=== PATIENT | male | born 1945 | race Caucasian/White ===

== ENCOUNTER 2019-01-01 13:38 | Emergency (ER) | payer MEDICARE, OTHER ==
--- NOTE | 2019-01-01 14:19 | ED.PDOC ---
History of Present Illness - General Chief Complaint: Blood Pressure Problem Stated Complaint: BP fluctuating,irregular heart rate at times Time Seen by Provider: 01/01/19 13:44 Source: patient Exam Limitations: no limitations - History of Present Illness Initial Comments: Ruddy Evans 72 y/o male started that for the last one week noted that his blood pressure had been fluctuating systic 130 and 90 also felt heart having extra beats.Denies chest pains or dizziness,headache,blurry vision but last week felt that like passing out after he stood up quickly.Has history of dm2 ,cardiac stent x -2011,HTN.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 Timing/Duration: 1 week, intermittent Severity: moderate Location: other - no chest pains Activities at Onset: none Prior Chest Pain/Cardiac Workup: cardiac cath, stress test Improving Factors: rest Worsening Factors: rest Associated Symptoms: other - see hpi Allergies/Adverse Reactions: Allergies NO KNOWN ALLERGY Allergy (Verified 01/01/19 13:55) Home Medications: Ambulatory Orders Alpha-Lipoic Acid (Thioctic AC [Alpha Lipoic Acid] 600 mg PO DAILY 01/01/19 Amlodipine Besylate 5 mg PO DAILY 01/01/19 Ascorbic Acid [Vitamin C] 1,000 mg PO DAILY 01/01/19 Aspirin [Aspirin EC Low Dose] 81 mg PO BID 01/01/19 Biotin [Biotin Maximum Strength] 10,000 mcg PO DAILY 01/01/19 Cholecalciferol [Vitamin D3] 2,000 unit PO DAILY 01/01/19 Cinnamon 500 mg PO BID 01/01/19 Coenzyme Q10 (Ubidecarenone) [Coq-10] 200 mg PO DAILY 01/01/19 Esomeprazole Strontium 49.3 mg PO DAILY 01/01/19 Garlic 1,000 mg PO DAILY 01/01/19 Glipizide [Glipizide ER] 10 mg PO DAILY 01/01/19 Lipoflavonoid 2 capsule PO TID 01/01/19 Losartan Potassium 100 mg PO DAILY 01/01/19 Magnesium 500 mg PO DAILY 01/01/19 Meloxicam 7.5 mg PO DAILY 01/01/19 Metformin HCl [Glucophage] 1,000 mg PO BID 01/01/19 Misc Natural Products [Cosamin Kimberly For Joint H] 1 tab PO BID 01/01/19 Misc Natural Products [Osteo Bi-Flex Joint Shiel] 1 tab PO DAILY 01/01/19 Multiple Vitamins W/ Minerals [Centrum Silver] 1 tab PO DAILY 01/01/19 Nortriptyline HCl [Pamelor] 10 mg PO DAILY 01/01/19 Zalhu-4-Gcjz Ethyl Esters [Fhuko-3-Tkrk Ethyl Esters 1 gm] 2 cap PO BID 01/01/19 Pravastatin Sodium 80 mg PO DAILY 01/01/19 Probiotic Product [Probiotic] 1 tab PO DAILY 01/01/19 Red Yeast Rice Extract [Red Yeast Rice] 600 mg PO DAILY 01/01/19 Sitagliptin Phosphate [Januvia] 100 mg PO DAILY 01/01/19 Tadalafil [Cialis] 5 mg PO DAILY 01/01/19 Testosterone Cypionate 0.5 ml IJ .[id number] 01/01/19 Turmeric (Curcuma Longa) [Turmeric] 1,000 mg PO BID 01/01/19 Valacyclovir HCl 500 mg PO BID 01/01/19 Zolpidem Tartrate 10 mg PO BEDTIME 01/01/19 l-Methylfolate W/ Algae-Vitami [Metanx 3-90.314-2-35 mg] 2 cap PO BID 01/01/19 Review of Systems - Review of Systems Constitutional: States: no symptoms reported EENTM: States: no symptoms reported Respiratory: States: no symptoms reported Cardiology: States: see HPI Gastrointestinal/Abdominal: States: no symptoms reported Genitourinary: States: no symptoms reported Musculoskeletal: States: no symptoms reported Skin: States: no symptoms reported Neurological: States: no symptoms reported All other Systems: Reviewed and Negative, No Change from Baseline Past Medical History (General) - Patient Medical History Hx Stroke: No Hx Cardiac Disorders: Yes - Stents x3 Hx Congestive Heart Failure: No Hx Hypertension: Yes Hx Diabetes: Yes Surgical History: other - low back surgery - Vaccination History Hx Influenza Vaccination: Yes Hx Pneumococcal Vaccination: Yes - Social History Hx Tobacco Use: Yes Hx Alcohol Use: No Hx Substance Use: No Hx Physical Abuse: No Hx Emotional Abuse: No Family Medical History - Family History Father Family History: Unknown Living Status: Unknown Hx Cardiac Disease: Yes - dad-[place] Hx Family Cancer: Yes - lungs-mom Physical Exam - Physical Exam General Appearance: Alert, Comfortable, No apparent distress Eyes, Ears, Nose, Throat Exam: PERRL/EOMI, normal ENT inspection Neck: non-tender, full range of motion, supple, normal inspection Respiratory: chest non-tender, lungs clear, normal breath sounds, no respiratory distress Cardiovascular/Chest: normal peripheral pulses, regular rate, rhythm, no murmur Peripheral Pulses: radial,right: 2+, radial,left: 2+ Gastrointestinal/Abdominal: non tender, soft Extremity: no pedal edema, no calf tenderness Neurologic: alert, oriented x 3 Skin Exam: normal color, warm/dry Progress - Progress Progress: 01/01/19 14:22 Vital Signs - 8 hr 01/01/19 01/01/19 13:51 13:58 Temperature 97.4 F L Pulse Rate 80 Pulse Rate [ 80 83 Left Brachial] Respiratory 16 Rate Blood Pressure 131/66 [Left Arm] O2 Sat by Pulse 96 Oximetry 01/01/19 15:40 Precautioned on all his over the counter medication that can interact with his prescription medications.Discuss all test results with patient - Results/Orders Results/Orders: Vital Signs - 8 hr 01/01/19 01/01/19 01/01/19 13:51 13:58 14:39 Temperature 97.4 F L Pulse Rate 80 Pulse Rate [ 80 83 77 Left Brachial] Respiratory 16 16 Rate Blood Pressure 131/66 130/65 [Left Arm] O2 Sat by Pulse 96 98 Oximetry Laboratory Tests 01/01/19 01/01/19 14:37 14:44 WBC 4.0 L RBC 4.01 L Hgb 13.2 L Hct 38.8 L MCV 96.7 H MCH 32.8 H MCHC 33.9 RDW 12.9 Plt Count 206 MPV 8.5 Absolute Neuts (auto) 2.70 Absolute Lymphs (auto) 0.80 L Absolute Monos (auto) 0.40 Absolute Eos (auto) 0.20 Absolute Basos (auto) 0.00 Neutrophils % 66.0 Lymphocytes % 20.3 Monocytes % 9.0 Eosinophils % 4.0 Basophils % 0.7 PT 9.7 INR 0.97 PTT (SP) 24.7 Sodium 140 Potassium 3.9 Chloride 107 Carbon Dioxide 23 Anion Gap 13.9 BUN 15 Creatinine 0.86 BUN/Creatinine Ratio 17.4 Random Glucose 206 H Serum Osmolality 286.2 Calcium 8.6 Magnesium 2.0 Total Bilirubin 0.4 Direct Bilirubin < 0.1 Indirect Bilirubin 0.3 AST 27 ALT 20 Alkaline Phosphatase 63 Creatine Kinase 85 CK-MB (CK-2) 2.9 CK-MB (CK-2) % Not Reportable Troponin I < 0.02 Serum Total Protein 6.4 Albumin 3.9 TSH 1.95 Urine Color Yellow Urine Appearance Clear Urine pH 5.5 Ur Specific [place] 1.020 Urine Protein Negative Urine Glucose (UA) 500 H Urine Ketones Negative Urine Blood Negative Urine Nitrite Negative Urine Bilirubin Negative Urine Urobilinogen 0.2 Ur Leukocyte Esterase Negative Urine RBC 0 Urine WBC 0 Ur Epithelial Cells 0 Urine Bacteria 0 - EKG/XRAY/CT EKG: Sinus, no ST T wave changes Comments: HR-78;unifocal pvc Departure - Departure Clinical Impression: Heart palpitations, Fluctuating blood pressure Time of Disposition: 15:42 Disposition: Discharge to Home or Self Care Condition: Fair Departure Forms: ED Discharge - Pt. Copy, Patient Portal Self Enrollment Instructions: Palpitations (DC), Palpitations Home Medications: Ambulatory Orders Alpha-Lipoic Acid (Thioctic AC [Alpha Lipoic Acid] 600 mg PO DAILY 01/01/19 Amlodipine Besylate 5 mg PO DAILY 01/01/19 Ascorbic Acid [Vitamin C] 1,000 mg PO DAILY 01/01/19 Aspirin [Aspirin EC Low Dose] 81 mg PO BID 01/01/19 Biotin [Biotin Maximum Strength] 10,000 mcg PO DAILY 01/01/19 Cholecalciferol [Vitamin D3] 2,000 unit PO DAILY 01/01/19 Cinnamon 500 mg PO BID 01/01/19 Coenzyme Q10 (Ubidecarenone) [Coq-10] 200 mg PO DAILY 01/01/19 Esomeprazole Strontium 49.3 mg PO DAILY 01/01/19 Garlic 1,000 mg PO DAILY 01/01/19 Glipizide [Glipizide ER] 10 mg PO DAILY 01/01/19 Lipoflavonoid 2 capsule PO TID 01/01/19 Losartan Potassium 100 mg PO DAILY 01/01/19 Magnesium 500 mg PO DAILY 01/01/19 Meloxicam 7.5 mg PO DAILY 01/01/19 Metformin HCl [Glucophage] 1,000 mg PO BID 01/01/19 Misc Natural Products [Cosamin Kimberly For Joint H] 1 tab PO BID 01/01/19 Misc Natural Products [Osteo Bi-Flex Joint Shiel] 1 tab PO DAILY 01/01/19 Multiple Vitamins W/ Minerals [Centrum Silver] 1 tab PO DAILY 01/01/19 Nortriptyline HCl [Pamelor] 10 mg PO DAILY 01/01/19 Urbbw-4-Puwl Ethyl Esters [Exukk-1-Ytwk Ethyl Esters 1 gm] 2 cap PO BID 01/01/19 Pravastatin Sodium 80 mg PO DAILY 01/01/19 Probiotic Product [Probiotic] 1 tab PO DAILY 01/01/19 Red Yeast Rice Extract [Red Yeast Rice] 600 mg PO DAILY 01/01/19 Sitagliptin Phosphate [Januvia] 100 mg PO DAILY 01/01/19 Tadalafil [Cialis] 5 mg PO DAILY 01/01/19 Testosterone Cypionate 0.5 ml IJ .[id number] 01/01/19 Turmeric (Curcuma Longa) [Turmeric] 1,000 mg PO BID 01/01/19 Valacyclovir HCl 500 mg PO BID 01/01/19 Zolpidem Tartrate 10 mg PO BEDTIME 01/01/19 l-Methylfolate W/ Algae-Vitami [Metanx 3-90.314-2-35 mg] 2 cap PO BID 01/01/19 Additional Instructions: Follow up with your [employer] 03 January 2019 for recheck call for appointment,NEED TO DISCONTINUE TURMERIC AND RED YEAST CAPSULE continue with rest of medications;return to Emergency Room as needed
[2019-01-01 15:55] VITALS: TEMP 98
[2019-01-01 15:56] VITALS: BP 114/72; O2SAT 95
== END 2019-01-01 15:57 | disposition home or self-care (01) ==
LOC: ER 13:38
DX: R00.2 Palpitations (principal); I10 Essential (primary) hypertension; I51.9 Heart disease, unspecified; E11.9 Type 2 diabetes mellitus without complications; Z95.5 Presence of coronary angioplasty implant and graft; Z87.891 Personal history of nicotine dependence; Z79.899 Other long term (current) drug therapy; Z79.84 Long term (current) use of oral hypoglycemic drugs; Z79.82 Long term (current) use of aspirin

== ENCOUNTER 2019-01-15 14:13 | Emergency (ER) | payer MEDICARE, OTHER ==
[2019-01-15] MEDS ORDERED: TETRACAINE HCL 0.5% OPHTH SOL 1 DROP ONE (14:40)
--- NOTE | 2019-01-15 14:43 | ED.PDOC ---
History of Present Illness - General Chief Complaint: Eye Problems Stated Complaint: Fuel in eyes Time Seen by Provider: 01/15/19 14:37 Source: patient Exam Limitations: no limitations - History of Present Illness Initial Comments: WAS USING COMPRESSED AIR ON [employer] WHEN HE ACCIDENTALLY BLEW SOME GAS INTO HIS EYES. FLUSHED THEM WITH WATER BUT STILL C/O QUEENIE IRRITATION. Timing/Duration: other - 45 MIN [employer] Severity: mild EENT Location: eye (R), eye (L) Prearrival Treatment: flushing eyes Allergies/Adverse Reactions: Allergies NO KNOWN ALLERGY Allergy (Verified 01/15/19 14:33) Home Medications: Ambulatory Orders Alpha-Lipoic Acid (Thioctic AC [Alpha Lipoic Acid] 600 mg PO DAILY 01/01/19 Amlodipine Besylate 5 mg PO DAILY 01/01/19 Ascorbic Acid [Vitamin C] 1,000 mg PO DAILY 01/01/19 Aspirin [Aspirin EC Low Dose] 81 mg PO BID 01/01/19 Biotin [Biotin Maximum Strength] 10,000 mcg PO DAILY 01/01/19 Cholecalciferol [Vitamin D3] 2,000 unit PO DAILY 01/01/19 Cinnamon 500 mg PO BID 01/01/19 Coenzyme Q10 (Ubidecarenone) [Coq-10] 200 mg PO DAILY 01/01/19 Esomeprazole Strontium 49.3 mg PO DAILY 01/01/19 Garlic 1,000 mg PO DAILY 01/01/19 Glipizide [Glipizide ER] 10 mg PO DAILY 01/01/19 Lipoflavonoid 2 capsule PO TID 01/01/19 Losartan Potassium 100 mg PO DAILY 01/01/19 Magnesium 500 mg PO DAILY 01/01/19 Meloxicam 7.5 mg PO DAILY 01/01/19 Metformin HCl [Glucophage] 1,000 mg PO BID 01/01/19 Misc Natural Products [Cosamin Kimberly For Joint H] 1 tab PO BID 01/01/19 Misc Natural Products [Osteo Bi-Flex Joint Shiel] 1 tab PO DAILY 01/01/19 Multiple Vitamins W/ Minerals [Centrum Silver] 1 tab PO DAILY 01/01/19 Nortriptyline HCl [Pamelor] 10 mg PO DAILY 01/01/19 Bfouq-8-Cyuw Ethyl Esters [Lhlfp-3-Obwf Ethyl Esters 1 gm] 2 cap PO BID 01/01/19 Pravastatin Sodium 80 mg PO DAILY 01/01/19 Probiotic Product [Probiotic] 1 tab PO DAILY 01/01/19 Red Yeast Rice Extract [Red Yeast Rice] 600 mg PO DAILY 01/01/19 Sitagliptin Phosphate [Januvia] 100 mg PO DAILY 01/01/19 Tadalafil [Cialis] 5 mg PO DAILY 01/01/19 Testosterone Cypionate 0.5 ml IJ .[id number] 01/01/19 Turmeric (Curcuma Longa) [Turmeric] 1,000 mg PO BID 01/01/19 Valacyclovir HCl 500 mg PO BID 01/01/19 Zolpidem Tartrate 10 mg PO BEDTIME 01/01/19 l-Methylfolate W/ Algae-Vitami [Metanx 3-90.314-2-35 mg] 2 cap PO BID 01/01/19 Past Medical History (General) - Patient Medical History Hx Stroke: No Hx of COPD: No Hx Cardiac Disorders: Yes - stents and palpitations Hx Congestive Heart Failure: No Hx Hypertension: Yes Hx Diabetes: Yes Hx Cancer: No Surgical History: tonsillectomy - Vaccination History Hx Tetanus, Diphtheria Vaccination: No Hx Influenza Vaccination: Yes Hx Pneumococcal Vaccination: Yes - Social History Hx Tobacco Use: Yes Hx Alcohol Use: No Hx Substance Use: No Hx Substance Use Treatment: No Hx Depression: No Hx Physical Abuse: No Hx Emotional Abuse: No - Female History Patient is a Female of Child Bearing Age (10 -59 yrs old): No Patient : No Family Medical History - Family History Father Family History: Unknown Living Status: Unknown Hx Cardiac Disease: Yes - dad-[place] Hx Family Cancer: Yes - lungs-mom Physical Exam - Physical Exam General Appearance: Alert, No apparent distress Eye Exam: bilateral other - CONJUNCTAL AND SCLERAL IRRIATION. CORNEAS CLEAR, PUPILS REACTIVE. EOMI. Ear Exam: bilateral ear: auricle normal Nasal Exam: normal inspection Throat Exam: normal mouth inspection, pharynx normal Neck: full range of motion, supple, normal inspection Cardiovascular/Respiratory: regular rate, rhythm, no M/R/G, normal breath sounds Neurologic: alert, oriented x 3 Skin Exam: normal color, other - NO PERIORBITAL SHER Progress - Progress Progress: 01/15/19 16:10 FEELS MUCH BETTER, INJECTION HAS IMPROVED. VISUAL ACUITY GOOD. PH NL QUEENIE. Departure - Departure Clinical Impression: Chemical exposure of eye Time of Disposition: 16:15 Disposition: Discharge to Home or Self Care Condition: Good Departure Forms: ED Discharge - Pt. Copy, Patient Portal Self Enrollment Instructions: Conjunctivitis (Noninfectious [place]) Home Medications: Ambulatory Orders Alpha-Lipoic Acid (Thioctic AC [Alpha Lipoic Acid] 600 mg PO DAILY 01/01/19 Amlodipine Besylate 5 mg PO DAILY 01/01/19 Ascorbic Acid [Vitamin C] 1,000 mg PO DAILY 01/01/19 Aspirin [Aspirin EC Low Dose] 81 mg PO BID 01/01/19 Biotin [Biotin Maximum Strength] 10,000 mcg PO DAILY 01/01/19 Cholecalciferol [Vitamin D3] 2,000 unit PO DAILY 01/01/19 Cinnamon 500 mg PO BID 01/01/19 Coenzyme Q10 (Ubidecarenone) [Coq-10] 200 mg PO DAILY 01/01/19 Esomeprazole Strontium 49.3 mg PO DAILY 01/01/19 Garlic 1,000 mg PO DAILY 01/01/19 Glipizide [Glipizide ER] 10 mg PO DAILY 01/01/19 Lipoflavonoid 2 capsule PO TID 01/01/19 Losartan Potassium 100 mg PO DAILY 01/01/19 Magnesium 500 mg PO DAILY 01/01/19 Meloxicam 7.5 mg PO DAILY 01/01/19 Metformin HCl [Glucophage] 1,000 mg PO BID 01/01/19 Misc Natural Products [Cosamin Kimberly For Joint H] 1 tab PO BID 01/01/19 Misc Natural Products [Osteo Bi-Flex Joint Shiel] 1 tab PO DAILY 01/01/19 Multiple Vitamins W/ Minerals [Centrum Silver] 1 tab PO DAILY 01/01/19 Nortriptyline HCl [Pamelor] 10 mg PO DAILY 01/01/19 Reebf-6-Evfo Ethyl Esters [Bzbzw-8-Bmkk Ethyl Esters 1 gm] 2 cap PO BID 01/01/19 Pravastatin Sodium 80 mg PO DAILY 01/01/19 Probiotic Product [Probiotic] 1 tab PO DAILY 01/01/19 Red Yeast Rice Extract [Red Yeast Rice] 600 mg PO DAILY 01/01/19 Sitagliptin Phosphate [Januvia] 100 mg PO DAILY 01/01/19 Tadalafil [Cialis] 5 mg PO DAILY 01/01/19 Testosterone Cypionate 0.5 ml IJ .[id number] 01/01/19 Turmeric (Curcuma Longa) [Turmeric] 1,000 mg PO BID 01/01/19 Valacyclovir HCl 500 mg PO BID 01/01/19 Zolpidem Tartrate 10 mg PO BEDTIME 01/01/19 l-Methylfolate W/ Algae-Vitami [Metanx 3-90.314-2-35 mg] 2 cap PO BID 01/01/19
[2019-01-15] MEDS ORDERED: PROPARACAINE 0.5% OPHTH SOL 15 ML BTTL BOTH_EYES ONE (14:47)
[2019-01-15 16:08] VITALS: BP 153/86; O2SAT 96
[2019-01-15 16:24] VITALS: TEMP 98.3
== END 2019-01-15 16:24 | disposition home or self-care (01) ==
LOC: ER 14:13
DX: H57.13 Ocular pain, bilateral (principal); I51.9 Heart disease, unspecified; I10 Essential (primary) hypertension; E11.9 Type 2 diabetes mellitus without complications; Z95.5 Presence of coronary angioplasty implant and graft; Z79.84 Long term (current) use of oral hypoglycemic drugs; Z79.899 Other long term (current) drug therapy; Z87.891 Personal history of nicotine dependence; Z79.82 Long term (current) use of aspirin; X58.XXXA Exposure to other specified factors, initial encounter